=== PATIENT | male | born 1970 | race Caucasian/White ===

== ENCOUNTER 2017-02-11 11:16 | Day surgery (SDC) | payer OTHER ==
[~2017-02-11] VITALS: Ht 177.8 cm; Wt 110.6 kg
[~2017-02-11 11:16] MED LIST: METHYLPREDNISOLO4 M1 PO; MOBIC15 MG PO; NAPROSYN500 MG PO; NORCO 5/3251 TABLET PO; OMEPRAZOLE40 M1 PO; PERCOCET 5/31 TABLET PO; PHENTERMINE HCL30 MG PO
[2017-02-11 11:57] VITALS: BP 139/93
[2017-02-11 14:55] VITALS: BP 141/86
[2017-02-11 15:50] VITALS: BP 135/79
== END 2017-02-11 15:57 | disposition home or self-care (01) ==
LOC: SDC 11:16
PROC: 0MBN0ZZ Excision of Right Knee Bursa and Ligament, Open Approach (ICD-10-PCS; principal; 2017-02-11)
DX: M76.51 Patellar tendinitis, right knee (principal); M70.41 Prepatellar bursitis, right knee; G47.30 Sleep apnea, unspecified; K21.9 Gastro-esophageal reflux disease without esophagitis
CPT/HCPCS: 88304; J0171; J0690; J1100; J1885; J2250; J2405; J3010